=== PATIENT | male | born 1985 | race Two or more races ===

== ENCOUNTER 2018-05-21 09:56 | Emergency (ER) | payer SELFPAY ==
[~2018-05-21] VITALS: Ht 165.1 cm; Wt 59.0 kg
[2018-05-21 10:07] VITALS: BP 157/102
[2018-05-21 13:20] VITALS: BP 158/93
--- NOTE | 2018-05-21 13:51 | Emergency Room Report ---
History of Present Illness General Chief Complaint: Substance Abuse Source: Patient Present Illness HPI This patient is brought in by EMS for running in the streets naked. He states that he did methamphetamine 2 hours prior to arrival. He just didn't feel like wearing his close. He has no other complaints. Allergies: Coded Allergies: No Known Allergies (Unverified , 09/30/16) Patient History Past Medical History: none Social History: Reports: drug use; Denies: smoking, alcohol use Reviewed Nursing Documentation: PMH: Agreed; PSxH: Agreed Nursing Documentation-PMH Past Medical History: No Stated History Review of Systems All Other Systems: negative except mentioned in HPI Physical Exam Vital Signs Date Time Temp Pulse Resp B/P (MAP) Pulse Ox O2 Delivery O2 Flow Rate FiO2 05/21/18 09:52 98.2 98 18 150/98 99 Room Air 98.2 Sp02 EP Interpretation: reviewed, normal General Appearance: no apparent distress, alert, GCS 15, non-toxic Head: normocephalic, atraumatic Eyes: bilateral eye normal inspection, bilateral eye PERRL ENT: hearing grossly normal, normal pharynx, no angioedema, normal voice Neck: full range of motion, supple/symm/no masses Respiratory: chest non-tender, lungs clear, normal breath sounds, no respiratory distress, no retraction, no accessory muscle use, speaking full sentences Cardiovascular #1: regular rate, rhythm, no edema, tachycardia Gastrointestinal: normal bowel sounds, non tender, soft, non-distended, no guarding, no rebound Rectal: deferred Musculoskeletal: back normal, gait/station normal, normal range of motion, non- tender Neurologic: alert, oriented x3, responsive, motor strength/tone normal, sensory intact, speech normal Psychiatric: judgement/insight normal, memory normal, no suicidal/homicidal ideation, other - Talking to himself, hypervigilant. Skin: normal color, no rash, warm/dry, well hydrated Medical Decision Making Diagnostic Impression: Primary Impression: Methamphetamine abuse Additional Impression: Methamphetamine intoxication ER Course This patient presents with methamphetamine intoxication. He is tachycardic and hypervigilant and a little anxious. This is consistent with methamphetamine intoxication. He is not aggressive or danger to himself or others. He was allowed to rest and detox here in the emergency department. He was discharged and instructed on the dangers of illicit drug use. He indicated understanding. Last Vital Signs Date Time Temp Pulse Resp B/P (MAP) Pulse Ox O2 Delivery O2 Flow Rate FiO2 05/21/18 13:20 94 23 158/93 98 Room Air 05/21/18 09:52 98.2 98.2 Disposition: HOME, SELF-CARE Condition: Improved Referrals: NOT CHOSEN IPA/,REFERRING (PCP) Patient Instructions: Stimulant Use Disorder-Methamphetamines Taylor Carlson DO May 21, 2018 13:51
[2018-05-21 14:07] VITALS: BP 158/98
[2018-05-21 14:14] VITALS: BP 158/98
== END 2018-05-21 14:14 | disposition home or self-care (01) ==
LOC: EDBD 09:56 → EMR 10:58
DX: F15.10 Other stimulant abuse, uncomplicated (principal)
CPT/HCPCS: 99283